=== PATIENT | female | born 1975 | race Caucasian/White ===

== ENCOUNTER 2018-07-02 16:48 | Emergency (ER) | payer SELFPAY ==
[~2018-07-02] VITALS: Ht 165.1 cm; Wt 53.1 kg
== END 2018-07-02 23:20 | disposition home or self-care (01) ==
LOC: ED 16:48
DX: N92.1 Excessive and frequent menstruation with irregular cycle (principal); D50.9 Iron deficiency anemia, unspecified
CPT/HCPCS: 36430; 85025; 86850; 86900; 86901; 86920; 99283-25; P9016

== ENCOUNTER 2019-09-30 04:21 | Emergency (ER) | payer SELFPAY ==
[~2019-09-30] VITALS: Ht 165.1 cm; Wt 51.7 kg
[~2019-09-30 04:21] MED LIST: IBUPROFEN800 MG PO; IRON325 M1 PO; NORCO 5-325 TA1 EACH PO; VITAMIN C500 M4 PO; VITAMIN D32000 UNI1 PO
[2019-09-30] MEDS ORDERED: NORCO 5-325 TA1 EACH PO (06:34)
[2019-09-30] MEDS ORDERED: ZOFRAN4 MG PO (06:57)
== END 2019-09-30 07:23 | disposition home or self-care (01) ==
LOC: ED 04:21
DX: N13.2 Hydronephrosis with renal and ureteral calculous obstruction (principal)
CPT/HCPCS: 51701; 74176; 80053; 81001; 83690; 85025; 99284-25; J1170; J1885; J2405

== ENCOUNTER 2020-10-20 17:41 | Emergency (ER) | payer SELFPAY ==
[~2020-10-20] VITALS: Ht 165.1 cm; Wt 54.4 kg
[~2020-10-20 17:41] MED LIST changes: +ZOFRAN4 MG PO
== END 2020-10-20 19:31 | disposition home or self-care (01) ==
LOC: ED 17:41
DX: J06.9 Acute upper respiratory infection, unspecified (principal); Z20.822 Contact with and (suspected) exposure to COVID-19; Z79.899 Other long term (current) drug therapy
CPT/HCPCS: 99283; C9803; U0003

== ENCOUNTER 2021-08-05 09:38 | Emergency (ER) | payer SELFPAY ==
[~2021-08-05] VITALS: Ht 165.1 cm; Wt 54.9 kg
--- OUTSIDE RECORDS SUMMARY | 2021-08-05 09:46 | XMS ---
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 E.DSada VISIT COUNT (12 MO.) 2 [facility] TOTAL 2 NOTE: Visits indicate total known visits. 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
[2021-08-05] MEDS ORDERED: IBUPROFEN200 MG PO (10:12)
== END 2021-08-05 12:50 | disposition home or self-care (01) ==
LOC: ED 09:38
DX: R10.31 Right lower quadrant pain (principal); Z79.899 Other long term (current) drug therapy
CPT/HCPCS: 76830; 76856; 81001; 84703; 99284-25

== ENCOUNTER 2021-11-18 12:46 | Emergency (ER) | payer OTHER ==
[~2021-11-18 12:46] MED LIST changes: +IBUPROFEN200 MG PO
[2021-11-18] MEDS ORDERED: CYCLOBENZAPRINE10 MG PO (13:18)
[2021-11-18] MEDS ORDERED: DICLOFENAC POTA50 MG PO (13:19)
[2021-11-18] MEDS ORDERED: PREDNISONE20 MG PO (16:04)
== END 2021-11-18 16:44 | disposition home or self-care (01) ==
LOC: ED 12:46
DX: M54.14 Radiculopathy, thoracic region (principal); Z79.899 Other long term (current) drug therapy; Z90.49 Acquired absence of other specified parts of digestive tract; Z90.710 Acquired absence of both cervix and uterus
CPT/HCPCS: 36415; 80053; 81001; 85025

== ENCOUNTER 2021-11-25 00:14 | Emergency (ER) | payer OTHER ==
[~2021-11-25] VITALS: Ht 165.1 cm; Wt 54.4 kg
[~2021-11-25 00:14] MED LIST changes: +CYCLOBENZAPRINE10 MG PO; +DICLOFENAC POTA50 MG PO; +PREDNISONE20 MG PO
--- OUTSIDE RECORDS SUMMARY | 2021-11-25 00:22 | XMS ---
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 Ervin VISIT COUNT (12 MO.) 3 [facility] TOTAL 3 NOTE: Visits indicate total known visits. 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
[2021-11-25] MEDS ORDERED: ONDANSETRON ODT8 MG PO (02:08)
--- NOTE | 2021-11-25 21:28 | EKG ---
[facility] [address] [place], [place] [address] Signed Normal sinus rhythm Minimal voltage criteria for LVH, may be normal variant ( Sokolow-Wilson ) Borderline ECG No previous ECGs available Confirmed by AVI NICOLE MD ([id number]) on 11/25/2021 9:27:57 PM Electronically Signed By: AVI NICOLE MD 11/25/212127 PATIENT NAME: MISTYJERMAINEANGUS Electrocardiogram DATE OF : 75 PHYSICIAN: AVI NICOLE MD REPORT #: [id number] REPORT IS CONFIDENTIAL AND NOT TO BE RELEASED WITHOUT AUTHORIZATION
== END 2021-11-25 02:24 | disposition home or self-care (01) ==
LOC: ED 00:14
DX: F12.929 Cannabis use, unspecified with intoxication, unspecified (principal); Z79.52 Long term (current) use of systemic steroids; Z79.899 Other long term (current) drug therapy
CPT/HCPCS: 36415; 80048; 81001; 84484; 85025; 93005; 93010; 96374; 96375; 99285-25; J2060; J2405; J7030